=== PATIENT | female | born 1935 | race Caucasian/White ===

== ENCOUNTER 2018-06-03 21:24 | Inpatient (IN) | payer MEDICARE, OTHER ==
[~2018-06-03] VITALS: Ht 162.6 cm; Wt 66.7 kg
--- NOTE | ~2018-06-03 | EC ---
PATIENT:KAMALJIT ESQUIVEL DATE OF SERVICE: 06/04/18 SEX: F MEDICAL RECORD: [id number] DATE OF : 39 LOCATION:[facility] AGE OF PATIENT: 83 ADMISSION DATE: 06/04/18 REFERRING PHYSICIAN: INTERPRETING PHYSICIAN: CARLITOS LUGO MD ECHOCARDIOGRAM REPORT ECHO CHARGES 4 ECHO COMPLETE Date: 06/08/18 CLINICAL DIAGNOSIS: CHF ECHOCARDIOGRAPHIC MEASUREMENTS (adult normal given) AC root (d.<3.7cm) 2.8 cm LV Septum d (<1.2 cm> 0.9 cm Valve Excursion 1.9 cm LV Septum (systole) 1.2 cm Left Atria (s.<4.0cm> 2.9 cm LVPW d(<1.2cm) 1.0 cm RV (d.<2.3cm) 2.7 cm LVPW (sytole) 1.6 cm LV diastole(<5.6CM) 4.5 cm MV E-F(>70mm/sec) cm LV systole 2.8 cm LVOT Diameter 1.7 cm MV exc.(>10mm) cm Est.ejection fraction (50-75%) % DOPPLER: LVIT cm/sec A 84.0 cm/sec E 110 cm/sec LA cm/sec RVSP 33.0 mmHg LVOT 97.0 cm/sec AOP1/2T m/s Asc. Ao 112 cm/sec RVOT 74.0 cm/sec RA cm/sec PA 97.0 cm/sec AV Gradient Peak 5.0 mmHg AV Mean 2.3 mmHg AV Area 1.8 cm MV Gradient Peak 6.0 mmHg MV Mean 2.4 mmHg MV Area cm COMMENTS: Water Plant Pump Operator: 1 TERELL POLOOE [employer] Front Desk Clerk: 1 Dr. Lugo TAPE# PACS Pericardial Effusion N DATE OF SERVICE: FINDINGS: 1. Left ventricular chamber size is within normal limits. Left ventricular systolic function is normal. Overall ejection fraction estimated at 55%. 2. Left atrium, right atrium, and right ventricle chamber sizes are within normal limits. 3. Valvular structures have normal structure and motion. 4. Doppler interrogation reveals mild mitral regurgitation, mild tricuspid regurgitation, no other valvular insufficiency or stenosis. Pulmonary systolic ECHOCARDIOGRAM REPORT [id number] KAMALJIT ESQUIVEL pressure is normal estimated 33 mmHg. 5. No evidence of pericardial effusion or left ventricular thrombus. TRANSINT:[id number] Voice Confirmation ID: [id number] DOCUMENT ID: [id number] CARLITOS LUGO MD at 1950 CC: [id number] DICTATION DATE: 06/09/18 1126 WHEAT SHIPPER: 06/09/18 1137 DIS IN 06/12/18 [facility] [address] [id number]
[2018-06-03 22:10] VITALS: BP 67/31
[2018-06-03 22:24] VITALS: BP 103/43
[2018-06-03 22:44] VITALS: BP 72/33
[2018-06-03 22:47] LABS: BASOPHILS 0.1 % (0-2); EOSINOPHILS 0 % (0-7); HEMATOCRIT 36.1 % (36.0-48.0); HEMOGLOBIN 11.6 g/dL (12-16); IMMATURE GRANULOCYTES 0.9 % (0-5); LYMPHOCYTES 2.3 % (15-50); MCH 28.4 pg (26.0-34.0); MCHC 32.1 g/dL (31.0-37.0); MCV 88.5 fL (80.0-100.0); MEAN PLATELET VOLUME 10.9 fL (7.4-10.4); MONOCYTES 4.7 % (2-11); PLATELET COUNT 79 10x3/uL (130-400); RBC 4.08 10x6/uL (4.00-5.40); RDW 14.3 % (11.5-14.5); WBC 17.6 10x3/uL (4.8-10.8)
[2018-06-03 22:51] LABS: PLATELET ESTIMATE DECREASED
[2018-06-03 22:58] LABS: ALBUMIN 2.6 g/dL (3.4-5.0); ALKALINE PHOSPHATASE 21 U/L (46-116); ALT (SGPT) 40 U/L (10-68); BILIRUBIN - TOTAL 0.37 mg/dL (0.2-1.3); CALC OSMOLALITY 292 mosm/kg (275-300); CARBON DIOXIDE 23.1 mmol/L (21.0-32.0); CHLORIDE - SERUM 110 mmol/L (98-107); CREATININE - SERUM 2.4 mg/dL (0.6-1.3); GLUCOSE 93 mg/dL (74-106); POTASSIUM - SERUM 4.1 mmol/L (3.5-5.1); PROTEIN - SERUM 5.5 g/dL (6.4-8.2); SODIUM 143 mmol/L (136-145); UREA NITROGEN 35 mg/dL (7-18); eGFR NON AFRICAN AMERICAN 20 mL/min (90-120)
[2018-06-03 23:00] VITALS: BP 66/34
[2018-06-03 23:18] LABS: AMYLASE - SERUM 56 U/L (25-115); CKMB 1.2 U/L (0.0-3.6); CREATINE KINASE 162 UL (21-215); LIPASE 95 U/L (73-393); PRO BNP 10819 pg/mL (0-450)
[2018-06-03 23:26] LABS: TROPONIN-I 0.085 ng/mL (0.000-0.060)
[2018-06-03 23:30] VITALS: BP 64/29
[2018-06-04] VITALS (92 sets, daily range): BP systolic 66–128; BP diastolic 4–77; Ht 162.6 cm; Wt 66.7 kg
[2018-06-04 01:21] LABS: APPEARANCE CLOUDY (CLEAR); BILIRUBIN NEGATIVE (NEGATIVE); COLOR YELLOW (YELLOW); GLUCOSE 50 mg/dL (NEGATIVE); KETONE NEGATIVE (NEGATIVE); NITRITE NEGATIVE (NEGATIVE); PROTEIN 1+ mg/dL (NEGATIVE); UROBILINOGEN NORMAL (NORMAL)
[2018-06-04 01:23] LABS: BACTERIA MODERATE /hpf (NONE SEEN)
[2018-06-04 07:35] LABS: ALBUMIN 2.8 g/dL (3.4-5.0); ALKALINE PHOSPHATASE 36 U/L (46-116); ALT (SGPT) 46 U/L (10-68); AMYLASE - SERUM 53 U/L (25-115); BILIRUBIN - TOTAL 0.55 mg/dL (0.2-1.3); CALC OSMOLALITY 291 mosm/kg (275-300); CALCIUM 7.1 mg/dL (8.5-10.1); CARBON DIOXIDE 19.6 mmol/L (21.0-32.0); CHLORIDE - SERUM 109 mmol/L (98-107); CKMB 2.7 U/L (0.0-3.6); CREATININE - SERUM 2.3 mg/dL (0.6-1.3); GLUCOSE 73 mg/dL (74-106); LIPASE 69 U/L (73-393); MAGNESIUM - SERUM 1.3 mg/dL (1.8-2.4); PROTEIN - SERUM 6.1 g/dL (6.4-8.2); SODIUM 142 mmol/L (136-145); UREA NITROGEN 40 mg/dL (7-18); eGFR NON AFRICAN AMERICAN 22 mL/min (90-120)
[2018-06-04 07:38] LABS: CREATINE KINASE 273 UL (21-215); POTASSIUM - SERUM 4.4 mmol/L (3.5-5.1); TROPONIN-I 0.084 ng/mL (0.000-0.060)
[2018-06-04 07:56] LABS: HEMATOCRIT 38.1 % (36.0-48.0); HEMOGLOBIN 12.4 g/dL (12-16); MCH 28.8 pg (26.0-34.0); MCHC 32.5 g/dL (31.0-37.0); MCV 88.4 fL (80.0-100.0); MEAN PLATELET VOLUME 12.1 fL (7.4-10.4); PLATELET COUNT 99 10x3/uL (130-400); RBC 4.31 10x6/uL (4.00-5.40); RDW 14.3 % (11.5-14.5)
[2018-06-04 09:42] LABS: EOSINOPHILS 1 % (0-7); LYMPHOCYTES 8 % (15-50); MONOCYTES 5 % (2-11); NEUTROPHILS 67 % (40-80); PLATELET ESTIMATE DECREASED
[2018-06-04 09:43] LABS: ROULEAUX OCC
[2018-06-04 21:27] LABS: APPEARANCE CLEAR (CLEAR); BILIRUBIN NEGATIVE (NEGATIVE); COLOR YELLOW (YELLOW); GLUCOSE NEGATIVE (NEGATIVE); KETONE NEGATIVE (NEGATIVE); NITRITE NEGATIVE (NEGATIVE); PROTEIN TRACE mg/dL (NEGATIVE); SPECIFIC GRAVITY 1.015 (1.005-1.020); UROBILINOGEN NORMAL (NORMAL)
[2018-06-04 21:28] LABS: BACTERIA MODERATE /hpf (NONE SEEN); EPITHELIAL CELLS 0-5 /hpf (0-5); RED CELLS - URINE 0-5 /hpf (0-5)
[2018-06-05] VITALS (90 sets, daily range): BP systolic 84–121; BP diastolic 40–90
[2018-06-05 04:55] LABS: ANION GAP 12.4 mmol/L (8-16); CARBON DIOXIDE 21.7 mmol/L (21.0-32.0); POTASSIUM - SERUM 4.1 mmol/L (3.5-5.1); VANCOMYCIN - RANDOM 6.4 ug/mL (10.0-20.0)
[2018-06-05 04:57] LABS: BASOPHILS 0.1 % (0-2); EOSINOPHILS 0 % (0-7); HEMATOCRIT 34.9 % (36.0-48.0); HEMOGLOBIN 11.5 g/dL (12-16); IMMATURE GRANULOCYTES 10.2 % (0-5); LYMPHOCYTES 2.2 % (15-50); MCH 28.6 pg (26.0-34.0); MCV 86.8 fL (80.0-100.0); MEAN PLATELET VOLUME 11.8 fL (7.4-10.4); MONOCYTES 5.1 % (2-11); NEUTROPHILS 82.4 % (40-80); PLATELET COUNT 91 10x3/uL (130-400); RBC 4.02 10x6/uL (4.00-5.40); RDW 14.8 % (11.5-14.5); WBC 22.4 10x3/uL (4.8-10.8)
[2018-06-05 05:28] LABS: CREATININE - SERUM 1.5 mg/dL (0.6-1.3)
[2018-06-05 05:29] LABS: CALCIUM 6.6 mg/dL (8.5-10.1)
[2018-06-06] VITALS (22 sets, daily range): BP systolic 93–127; BP diastolic 45–88
[2018-06-06 04:31] LABS: BASOPHILS 0.1 % (0-2); EOSINOPHILS 0.5 % (0-7); HEMATOCRIT 33.2 % (36.0-48.0); HEMOGLOBIN 10.9 g/dL (12-16); IMMATURE GRANULOCYTES 0.5 % (0-5); LYMPHOCYTES 4.4 % (15-50); MCH 28.2 pg (26.0-34.0); MCHC 32.8 g/dL (31.0-37.0); MONOCYTES 2.9 % (2-11); NEUTROPHILS 91.6 % (40-80); PLATELET COUNT 79 10x3/uL (130-400); RBC 3.86 10x6/uL (4.00-5.40); RDW 14.9 % (11.5-14.5); WBC 16.4 10x3/uL (4.8-10.8)
[2018-06-06 04:59] LABS: ANION GAP 9.2 mmol/L (8-16); CARBON DIOXIDE 23.5 mmol/L (21.0-32.0); POTASSIUM - SERUM 3.7 mmol/L (3.5-5.1); VANCOMYCIN - RANDOM 8.2 ug/mL (10.0-20.0)
[2018-06-06 05:25] LABS: CALCIUM 6.6 mg/dL (8.5-10.1)
[2018-06-07 00:53] VITALS: BP 119/56
[2018-06-07 05:06] VITALS: BP 154/64
[2018-06-07 05:58] LABS: ANION GAP 11.2 mmol/L (8-16); CALCIUM 7.2 mg/dL (8.5-10.1); CARBON DIOXIDE 23.1 mmol/L (21.0-32.0); CREATININE - SERUM 0.8 mg/dL (0.6-1.3); POTASSIUM - SERUM 3.3 mmol/L (3.5-5.1); VANCOMYCIN - RANDOM 4.4 ug/mL (10.0-20.0)
[2018-06-07 06:42] LABS: BASOPHILS 0.2 % (0-2); EOSINOPHILS 1.2 % (0-7); HEMATOCRIT 34.6 % (36.0-48.0); HEMOGLOBIN 11.5 g/dL (12-16); IMMATURE GRANULOCYTES 2.7 % (0-5); LYMPHOCYTES 8.2 % (15-50); MCH 28.5 pg (26.0-34.0); MCHC 33.2 g/dL (31.0-37.0); MCV 85.6 fL (80.0-100.0); MEAN PLATELET VOLUME 12.4 fL (7.4-10.4); MONOCYTES 4.8 % (2-11); NEUTROPHILS 82.9 % (40-80); RBC 4.04 10x6/uL (4.00-5.40); RDW 14.7 % (11.5-14.5)
[2018-06-07 06:44] LABS: PLATELET COUNT 100 10x3/uL (130-400); WBC 10.9 10x3/uL (4.8-10.8)
[2018-06-07 08:03] VITALS: BP 135/48
[2018-06-07 11:55] VITALS: BP 147/67
[2018-06-07 16:15] VITALS: BP 130/60
[2018-06-07 21:10] VITALS: BP 129/54
[2018-06-08 05:34] LABS: ANION GAP 9.5 mmol/L (8-16); CALCIUM 7.7 mg/dL (8.5-10.1); CARBON DIOXIDE 24.4 mmol/L (21.0-32.0); CREATININE - SERUM 0.8 mg/dL (0.6-1.3); POTASSIUM - SERUM 3.9 mmol/L (3.5-5.1)
[2018-06-08 07:23] LABS: BASOPHILS 0.2 % (0-2); EOSINOPHILS 1.1 % (0-7); HEMATOCRIT 33.6 % (36.0-48.0); HEMOGLOBIN 11.3 g/dL (12-16); IMMATURE GRANULOCYTES 6.7 % (0-5); LYMPHOCYTES 8.2 % (15-50); MCH 28.5 pg (26.0-34.0); MCHC 33.6 g/dL (31.0-37.0); MCV 84.6 fL (80.0-100.0); MEAN PLATELET VOLUME 11.5 fL (7.4-10.4); MONOCYTES 7.6 % (2-11); NEUTROPHILS 76.2 % (40-80); PLATELET COUNT 120 10x3/uL (130-400); RBC 3.97 10x6/uL (4.00-5.40); RDW 14.6 % (11.5-14.5); WBC 10.4 10x3/uL (4.8-10.8)
[2018-06-08 11:05] VITALS: BP 144/56
[2018-06-08 14:46] VITALS: BP 146/66
[2018-06-08 22:12] VITALS: BP 145/68
[2018-06-09 04:27] VITALS: BP 121/47
[2018-06-09 05:06] LABS: BASOPHILS 0.2 % (0-2); EOSINOPHILS 0.6 % (0-7); HEMATOCRIT 31.6 % (36.0-48.0); HEMOGLOBIN 10.6 g/dL (12-16); IMMATURE GRANULOCYTES 5.4 % (0-5); LYMPHOCYTES 8.2 % (15-50); MCH 28.2 pg (26.0-34.0); MCHC 33.5 g/dL (31.0-37.0); MEAN PLATELET VOLUME 11.6 fL (7.4-10.4); MONOCYTES 7.5 % (2-11); NEUTROPHILS 78.1 % (40-80); RBC 3.76 10x6/uL (4.00-5.40); RDW 14.5 % (11.5-14.5); WBC 12.4 10x3/uL (4.8-10.8)
[2018-06-09 05:10] LABS: PLATELET COUNT 147 10x3/uL (130-400)
[2018-06-09 05:15] LABS: CALC OSMOLALITY 285 mosm/kg (275-300); CALCIUM 7.4 mg/dL (8.5-10.1); CHLORIDE - SERUM 111 mmol/L (98-107); CREATININE - SERUM 0.7 mg/dL (0.6-1.3); GLUCOSE 108 mg/dL (74-106); SODIUM 144 mmol/L (136-145); UREA NITROGEN 6 mg/dL (7-18); eGFR NON AFRICAN AMERICAN 85 mL/min (90-120)
[2018-06-09 09:19] VITALS: BP 152/63
[2018-06-09 10:40] VITALS: BP 157/56
[2018-06-09 11:10] LABS: POTASSIUM - SERUM 3.2 mmol/L (3.5-5.1)
[2018-06-09 11:24] LABS: MAGNESIUM - SERUM 1.6 mg/dL (1.8-2.4)
[2018-06-09 16:31] VITALS: BP 141/67
[2018-06-09 21:44] VITALS: BP 162/72
[2018-06-10 05:26] LABS: BASOPHILS 0.2 % (0-2); EOSINOPHILS 0.6 % (0-7); HEMATOCRIT 34.1 % (36.0-48.0); HEMOGLOBIN 11.5 g/dL (12-16); IMMATURE GRANULOCYTES 4.3 % (0-5); LYMPHOCYTES 8.5 % (15-50); MCH 28.3 pg (26.0-34.0); MCHC 33.7 g/dL (31.0-37.0); MCV 83.8 fL (80.0-100.0); MEAN PLATELET VOLUME 11.2 fL (7.4-10.4); MONOCYTES 6.2 % (2-11); NEUTROPHILS 80.2 % (40-80); PLATELET COUNT 166 10x3/uL (130-400); RBC 4.07 10x6/uL (4.00-5.40); RDW 14.9 % (11.5-14.5); WBC 13.4 10x3/uL (4.8-10.8)
[2018-06-10 06:10] LABS: CALC OSMOLALITY 284 mosm/kg (275-300); CALCIUM 7.5 mg/dL (8.5-10.1); CHLORIDE - SERUM 112 mmol/L (98-107); CREATININE - SERUM 0.6 mg/dL (0.6-1.3); GLUCOSE 113 mg/dL (74-106); MAGNESIUM - SERUM 1.7 mg/dL (1.8-2.4); POTASSIUM - SERUM 4.1 mmol/L (3.5-5.1); SODIUM 144 mmol/L (136-145); UREA NITROGEN 4 mg/dL (7-18); eGFR NON AFRICAN AMERICAN > 90 mL/min (90-120)
[2018-06-10 08:27] VITALS: BP 148/64
[2018-06-10 13:32] VITALS: BP 156/76
[2018-06-10 18:34] VITALS: BP 131/66
[2018-06-10 22:14] VITALS: BP 151/65
[2018-06-11 05:21] VITALS: BP 132/57
[2018-06-11 06:34] LABS: BASOPHILS 0.1 % (0-2); EOSINOPHILS 0.6 % (0-7); HEMATOCRIT 32.2 % (36.0-48.0); HEMOGLOBIN 10.8 g/dL (12-16); IMMATURE GRANULOCYTES 1.5 % (0-5); LYMPHOCYTES 7.1 % (15-50); MCH 28.1 pg (26.0-34.0); MCHC 33.5 g/dL (31.0-37.0); MCV 83.6 fL (80.0-100.0); MONOCYTES 4.7 % (2-11); PLATELET COUNT 179 10x3/uL (130-400); RBC 3.85 10x6/uL (4.00-5.40); RDW 14.9 % (11.5-14.5); WBC 12.7 10x3/uL (4.8-10.8)
[2018-06-11 06:44] LABS: ANION GAP 10.9 mmol/L (8-16); CALCIUM 7.6 mg/dL (8.5-10.1); CARBON DIOXIDE 25.8 mmol/L (21.0-32.0); CREATININE - SERUM 0.8 mg/dL (0.6-1.3); POTASSIUM - SERUM 3.7 mmol/L (3.5-5.1)
[2018-06-11 09:26] VITALS: BP 140/69
[2018-06-11 12:28] VITALS: BP 146/64
[2018-06-11 16:14] VITALS: BP 140/62
[2018-06-11 20:00] VITALS: BP 135/65
[2018-06-12 04:08] VITALS: BP 137/70
[2018-06-12 08:17] VITALS: BP 98/61
[2018-06-12 08:20] LABS: BASOPHILS 0.2 % (0-2); EOSINOPHILS 0.6 % (0-7); HEMATOCRIT 32.2 % (36.0-48.0); HEMOGLOBIN 10.9 g/dL (12-16); IMMATURE GRANULOCYTES 1.2 % (0-5); LYMPHOCYTES 9.1 % (15-50); MCH 28.4 pg (26.0-34.0); MCHC 33.9 g/dL (31.0-37.0); MCV 83.9 fL (80.0-100.0); MEAN PLATELET VOLUME 10.8 fL (7.4-10.4); MONOCYTES 5.2 % (2-11); NEUTROPHILS 83.7 % (40-80); PLATELET COUNT 201 10x3/uL (130-400); RBC 3.84 10x6/uL (4.00-5.40); RDW 14.9 % (11.5-14.5); WBC 10.8 10x3/uL (4.8-10.8)
[2018-06-12 08:43] LABS: CALC OSMOLALITY 282 mosm/kg (275-300); CARBON DIOXIDE 28.7 mmol/L (21.0-32.0); CHLORIDE - SERUM 108 mmol/L (98-107); CREATININE - SERUM 0.7 mg/dL (0.6-1.3); GLUCOSE 113 mg/dL (74-106); POTASSIUM - SERUM 3.2 mmol/L (3.5-5.1); SODIUM 143 mmol/L (136-145); UREA NITROGEN 5 mg/dL (7-18); eGFR NON AFRICAN AMERICAN 85 mL/min (90-120)
[2018-06-12] MEDS ORDERED: FLAGYL500 MG PO (10:53)
[2018-06-12] MEDS ORDERED: LEVOXYL100 MCG PO (10:54)
[2018-06-12] MEDS ORDERED: FLORAJEN3 CAPS460 MG PO (10:54)
[2018-06-12] MEDS ORDERED: IPRAT-ALBUT 0.5-3 ML INH (10:54)
[2018-06-12] MEDS ORDERED: ARICEPT10 MG PO (10:54)
[2018-06-12] MEDS ORDERED: VANCOMYCIN250 MG/51 PO (10:54)
[2018-06-12] MEDS ORDERED: ZOLOFT100 MG PO (10:54)
[2018-06-12] MEDS ORDERED: PROTONIX40 MG PO (10:54)
[2018-06-12 13:47] VITALS: BP 102/60
== END 2018-06-12 14:11 | DRG 871 ==
LOC: D.ER 21:24 → D.ICU 06-04 05:29 → D.MS 06-04 05:29 → D.ICU 06-04 05:49 → D.MS 06-06 21:24 → D.SDCHOLD 06-10 16:32 → D.MS 06-10 16:34 → D.SDCHOLD 06-11 07:25 → D.MS 06-11 07:25
PROVIDERS: Family Medicine; Internal Medicine Nephrology; Student in an Organized Health Care Education/Training Program
DX: A41.9 Sepsis, unspecified organism (principal); R65.21 Severe sepsis with septic shock; N17.0 Acute kidney failure with tubular necrosis; N39.0 Urinary tract infection, site not specified; N12 Tubulo-interstitial nephritis, not specified as acute or chronic; J98.11 Atelectasis; N20.0 Calculus of kidney; J43.9 Emphysema, unspecified; K21.9 Gastro-esophageal reflux disease without esophagitis; E78.5 Hyperlipidemia, unspecified; D69.6 Thrombocytopenia, unspecified; R32 Unspecified urinary incontinence; R15.9 Full incontinence of feces; E04.9 Nontoxic goiter, unspecified; F03.90 Unspecified dementia, unspecified severity, without behavioral disturbance, psychotic disturbance, mood disturbance, and anxiety